=== PATIENT | male | born 1990 | race Hispanic/Latino ===

== ENCOUNTER 2022-06-01 18:02 | Emergency (ER) | payer SELFPAY ==
[~2022-06-01] VITALS: Ht 154.9 cm; Wt 61.0 kg
[2022-06-01 18:31] VITALS: BP 136/86
[2022-06-01 18:45] VITALS: BP 135/81
[2022-06-01 19:00] VITALS: BP 129/90
[2022-06-01 19:26] LABS: BASO% 0.2 % (0-3); EOS% 0.7 % (0-8); HEMATOCRIT 38.2 % (39.0-50.0); HEMOGLOBIN 13.2 g/dl (14.0-18.0); LYMPH% 38.5 % (15-41); MEAN CELL VOLUME 85.3 fL CALC (80.0-100.0); MEAN CORPUSCULAR HGB 29.5 pG CALC (26.0-32.0); MEAN CORPUSCULAR HGB CONC 34.6 g/dL CAL (32.0-36.0); MONO% 6.3 % (2-13); NEUT# 3.27 thou/uL (1.82-7.42); NEUT% 54.3 % (42-76); RED BLOOD COUNT 4.48 mill/uL (4.70-6.10); RED CELL DISTRI WIDTH 11.9 % (11.5-15.5)
[2022-06-01 19:41] LABS: ALKALINE PHOSPHATASE 71 u/l (38-126); ANION GAP 14 (6-22 (CALC)); BILIRUBIN, TOTAL 0.2 mg/dL (0.2-1.3); BUN 16 mg/dL (9-20); BUN/CREATININE RATIO 19 (12-20 (CALC)); CARBON DIOXIDE 27 mmol/l (22-30); CHLORIDE 103 mmol/l (95-108); CREATININE 0.8 mg/dL (0.7-1.3); GFR FOR AFR.AMER. > 60 ML/MIN (>=60 (CALC)); GFR OTHER RACES > 60 ML/MIN (>=60 (CALC)); POTASSIUM 3.7 mmol/l (3.5-5.1); SGOT/AST 39 u/l (17-59); SODIUM 140 mmol/l (137-146); TOTAL PROTEIN 8.4 g/dL (6.3-8.2)
[2022-06-01 20:02] LABS: URINE BILIRUBIN - DIPSTICK NEGATIVE (NEGATIVE); URINE BLOOD DIPSTICK NEGATIVE (NEGATIVE); URINE COLOR YELLOW; URINE GLUCOSE - DIPSTICK NEGATIVE (NEGATIVE); URINE KETONE NEGATIVE (NEGATIVE); URINE LEUK ESTERASE NEGATIVE (NEGATIVE); URINE PH 6.5 (4.5-8.0); URINE PROTEIN - DIPSTICK NEGATIVE (NEG-TRACE); URINE SPECIFIC GRAVITY >=1.030; URINE UROBILINOGEN - DIPSTICK 0.2 E.U./dL (0.2)
[2022-06-01 20:03] VITALS: BP 128/73
[2022-06-01 20:04] LABS: URINE NITRITE - DIPSTICK NEGATIVE (Negative)
[2022-06-01 20:30] VITALS: BP 120/78
[2022-06-01] MEDS ORDERED: NAPROXEN500 MG PO (20:45)
[2022-06-01] MEDS ORDERED: PROTONIX40 M2 PO (20:45)
[2022-06-01 20:54] VITALS: BP 120/78
== END 2022-06-01 21:16 | disposition home or self-care (01) | DRG 103 ==
LOC: ED 18:02
PROVIDERS: Nurse Practitioner
DX: R51.9 Headache, unspecified (principal); K21.9 Gastro-esophageal reflux disease without esophagitis; Z20.822 Contact with and (suspected) exposure to COVID-19